=== PATIENT | female | born 1980 | race Caucasian/White ===

== ENCOUNTER 2019-12-04 13:07 | Emergency (ER) | payer BC, SELFPAY ==
[2019-12-04 13:24] VITALS: BP 140/73; PULSE 83; RESP 17; TEMP 36.6; O2SAT 100
--- NOTE | 2019-12-04 13:25 | ED.GENADULT ---
HPI - General Adult General Chief complaint: Unspecified Stated complaint: something stuck in throat History of Present Illness HPI narrative: Timi presented to clinic after choking on a cranberry. She has a history of esophageal stricture for many years. She was supposed to have a dilation but did not end up having it done years ago. She does occasionally get things stuck in her throat. However it is not been this bad or for this long before. She feels a mass in the right side of her throat, is coughing, and gagging but cannot vomit it. She is able to speak and breath without difficulty. Related Data Home Medications Medication Instructions Recorded Confirmed epinephrine 0.3 ml SUBCUT PRN PRN 12/04/19 12/04/19 rizatriptan 5 mg PO DAILY PRN 12/04/19 12/04/19 Allergies Allergy/AdvReac Type Severity Reaction Status Date / Time No Known Allergies Allergy Mild Verified 01/07/18 09:36 Review of Systems Review of Systems: All systems reviewed & are unremarkable except as noted in HPI and below PMFSH Family History Family History Grandparent Family history of elevated blood lipids Cerebrovascular accident, Onset Age: 62 Diabetes mellitus Father Hypertension Social History Social History Smoking status: Former smoker Second hand tobacco smoke exposure: No Alcohol intake: current Exam Const: Other: Adult woman holding trash can, and gagging and dry heaving into it is well spitting up saliva. she is able to speak without difficulty. HENMT: Head: normal to inspection Other: Normocephalic, atraumatic, EOMI, no cervical lymphadenopathy, moist mucous membranes, no visible foreign body in the oropharynx Eyes: Pupils: Equal, round and reactive pupils present Neck: Neck: normal visual inspection and no lymphadenopathy Resp: Effort & Inspection: normal respiratory effort and not labored Auscultation: clear to auscultation bilaterally, breath sounds present and lung sounds not diminished Other: no stridor or wheezes Cardio: Rate: regular rate Rhythm: regular rhythm GI: GI Palp: Yes Soft to palpation and No Tenderness to palpation present (GI) Skin: General skin exam: normal color Neuro: General: patient oriented x3, moves all extremities and CN's II-XI intact bilaterally Extrem: General: normal to inspection Psych: Mental Status: mental status grossly normal Course Vital Signs Vital signs: Vital Signs Temperature 36.6 C 12/04/19 13:24 Pulse Rate 83 12/04/19 13:24 Respiratory Rate 17 12/04/19 13:24 Blood Pressure 140/73 12/04/19 13:24 Pulse Oximetry 100 12/04/19 13:24 Temperature 36.6 C 12/04/19 13:24 Pulse Rate 83 12/04/19 13:24 Respiratory Rate 17 12/04/19 13:24 Blood Pressure 140/73 12/04/19 13:24 Pulse Oximetry 100 12/04/19 13:24 Medical Decision Making Vital Signs Vital Signs: Vital Signs Temperature 36.6 C 12/04/19 13:24 Pulse Rate 83 12/04/19 13:24 Respiratory Rate 17 12/04/19 13:24 Blood Pressure 140/73 12/04/19 13:24 Pulse Oximetry 100 12/04/19 13:24 Temperature 36.6 C 12/04/19 13:24 Pulse Rate 83 12/04/19 13:24 Respiratory Rate 17 12/04/19 13:24 Blood Pressure 140/73 12/04/19 13:24 Pulse Oximetry 100 12/04/19 13:24 Discharge Plan Discharge Clinical Impression: Esophageal obstruction due to food impaction Patient Disposition: Acute Care Hospital Condition: Stable Additional Instructions: Please proceed to the outpatient surgery center at [facility] nephew will not be transported by EMS. please return to the emergency department for any new, worsening, or concerning symptoms. Prescriptions: No Action epinephrine 0.3 mg/0.3 mL auto-injector 0.3 ml subcut PRN PRN (Reason: Anaphylaxis) RF: 0 rizatriptan 5 mg tablet,disintegrating 5 mg PO DAILY PRN
[2019-12-04 13:45] VITALS: PULSE 76; O2SAT 99
== END 2019-12-04 13:46 | disposition short-term general hospital (02) ==
PROVIDERS: Emergency Provider Family Medicine
DX: K22.2 Esophageal obstruction (principal)
CPT/HCPCS: 99282; 99283

== ENCOUNTER 2019-12-04 14:20 | Day surgery (SDC) | payer BC, SELFPAY ==
[2019-12-04 14:53] VITALS: BMI 20.8
[2019-12-04 14:56] VITALS: BP 121/81; PULSE 74; RESP 24; TEMP 36.9; O2SAT 100
[2019-12-04] MEDS: LACTATED RINGERS 1,000 ML 150 ML IV CONT (15:12)
--- NOTE | 2019-12-04 15:21 | WPDANESEPPF ---
Anes - Initial Pre Proc Eval Procedure: Operation Date: 12/04/19 15:15 Proposed Procedures p Esophagogastroduodenoscopy with Foreign Body Removal - Jesus Durham MD Date/Time: 12/04/19 15:21 Surgeon: Jesus Durham MD Pre Op Diagnosis: foreign body in throat Patient Data Age: 39 Gender: F Height: 5 ft 1 in Weight: 50 kg Last Vital Signs Temp 36.9 C 12/04/19 14:56 Pulse 74 12/04/19 14:56 Resp 24 H 12/04/19 14:56 BP 121/81 12/04/19 14:56 Pulse Ox 100 12/04/19 14:56 Allergies Allergy/AdvReac Type Severity Reaction Status Date / Time No Known Allergies Allergy Verified 12/04/19 14:52 Home Medications Medication Instructions Recorded Confirmed Type calcium carbonate [Calcium 500] 500 mg PO EVERY OTHER DAY 12/04/19 12/04/19 History rflicksqemwv-rycq-cbyzl acid 1 tablet PO DAILY 12/04/19 12/04/19 History [Centrum Women] Patient hx anesthesia problems: none Family hx anesthesia problems: none [facility] Past Medical History Medical History (Updated 12/04/19 @ 15:22 by Govind Peters MD) Esophageal foreign body Surgical History Surgical History (Updated 12/04/19 @ 15:22 by Govind Peters MD) H/O breast augmentation Anes - Eval Final PreProcedure Day of Procedure 12/04/19 15:21 Patient weight: normal Heart: regular rate and rhythm Lungs: clear to auscultation Airway: Mallampati scale class 1 Neurological: alert and oriented Last oral intake: 4 hours Emergent: yes Anesthetic plan: proceed Anesthesia type and monitoring: general (possible ETT) GIVS and standard monitoring Informed Consent: The patient's anesthetic plan and its attendant risks and benefits were discussed with the patient/family/POA. Questions were solicited and answers provided to the satisfaction of the patient/family/POA.
--- NOTE | 2019-12-04 15:43 | P.CONGI_ITS ---
Assessment and Plan Assessment and plan (1) Dysphagia: Code(s): R13.10 - Dysphagia, unspecified Status: Acute Assessment and Plan: will require biopsies, more recommendations after egd (2) Esophageal foreign body: Code(s): T18.108A - Unspecified foreign body in esophagus causing other injury, initial encounter Status: Acute Assessment and Plan: will proceed with urgent EGD GI Consult Note Consult date/time: 12/04/19 15:43 HPI: Timi Wills is a 39 year old female here after she went to [facility] with unable to swallow, she had for lunch cranberries. Never had EGD but previously also difficulty swallowing solids, she is not taking any meds Review of Systems Constitutional: Constitutional: Denies headache(s) and Denies weakness Eyes: Eyes: Denies blurry vision ENT: Reports Normal hearing present, Denies headache(s) and Denies neck pain Cardiovascular: Cardiovascular: Denies chest pain and Denies dyspnea Respiratory: Respiratory: Denies dyspnea Gastrointestinal: Gastrointestinal: Reports no additional gastrointestinal complaints Genitourinary: Genitourinary: Denies dysuria Musculoskeletal: Musculoskeletal: Denies neck pain Integumentary/Breasts: Skin/Breast: Denies dry skin Neurologic: Reports Normal hearing present, Denies headache(s) and Denies weakness Psychiatric: Psychiatric: Denies anxiety Endocrine: Endocrine: Denies change in body appearance Hematologic/Lymphatic: Hematologic/Lymphatic: Denies easy bleeding Allergic/Immunologic: Allergic/Immunologic: Denies urticaria PMFSH Past Medical History Medical History (Updated 12/04/19 @ 15:44 by Jesus Durham MD) Dysphagia Esophageal foreign body Surgical History Surgical History (Updated 12/04/19 @ 15:22 by Govind Peters MD) H/O breast augmentation Meds Home Medications and Allergies Home Medications Medication Instructions Recorded Confirmed Type calcium carbonate [Calcium 500] 500 mg PO EVERY OTHER DAY 12/04/19 12/04/19 History xfknxhtbtjnv-jkxh-ounef acid 1 tablet PO DAILY 12/04/19 12/04/19 History [Centrum Women] Allergies Allergy/AdvReac Type Severity Reaction Status Date / Time No Known Allergies Allergy Verified 12/04/19 14:52 Vital Signs Vital Signs - 24 hr 12/04/19 14:56 Temperature 98.4 F Pulse Rate 74 Respiratory Rate 24 H Blood Pressure 121/81 Pulse Oximetry 100 Exam Const: General: comfortable and no acute distress HENMT: General nose exam: Normal nares present Eyes: General: appearance normal, both eyes and all related structures Neck: Neck: no JVD Resp: Auscultation: clear to auscultation bilaterally Cardio: Rate: regular rate Rhythm: regular rhythm GI: Inspection: non-distended GI Palp: Yes Soft to palpation Skin: General skin exam: normal color Neuro: General: gait normal Speech: normal speech Extrem: General: normal to inspection Psych: Mental Status: mental status grossly normal
[2019-12-04 15:58] VITALS: BP 84/52; PULSE 62; RESP 18; O2SAT 100
[2019-12-04 16:08] VITALS: BP 76/48; PULSE 61; RESP 18; O2SAT 100
[2019-12-04 16:18] VITALS: BP 95/44; PULSE 58; RESP 20; O2SAT 100
== END 2019-12-04 16:50 | disposition home or self-care (01) ==
PROVIDERS: PCP Internal Medicine; Visit Provider Internal Medicine Gastroenterology
PROC: 0DJ08ZZ Inspection of Upper Intestinal Tract, Via Natural or Artificial Opening Endoscopic (ICD-10-PCS; CPT 43235; principal; 2019-12-04 15:15)
DX: K22.2 Esophageal obstruction (principal)
CPT/HCPCS: 43239; 88305; J2704; J7120

== ENCOUNTER → 2021-03-28 13:17 | Outpatient (CLI) | payer BC, OTHER, SELFPAY ==
--- NOTE | ~2021-03-28 | MM_ITS ---
EXAMINATION: MM scrn cecilia implant BI w rogers HISTORY: Screening mammogram TECHNIQUE: Craniocaudal and mediolateral oblique 3-D tomosynthesis images with implant displacement a nd synthetic 2-D images were generated. Craniocaudal and mediolateral oblique views of the breasts wi thout implant displacement were obtained using full field digital mammography. CAD analysis was submi tted and interpreted. COMPARISON: 04/26/2019 BREAST PARENCHYMAL COMPOSITION: There are scattered areas of fibroglandular density. FINDINGS: There is no evidence of suspicious mass, calcification, or architectural distortion to sugg est malignancy in either breast. There has been no suspicious interval change. IMPRESSION: 1. No mammographic evidence of malignancy. 2. Recommend routine screening mammography in one year. BI-RADS Category 1: Negative Reviewed, dictated and finalized at location A.
== END ==
PROVIDERS: Visit Provider Obstetrics & Gynecology
DX: Z12.31 Encounter for screening mammogram for malignant neoplasm of breast (principal)
CPT/HCPCS: 77063; 77067

== ENCOUNTER → 2022-10-06 15:16 | Outpatient (CLI) | payer BC, SELFPAY ==
--- NOTE | ~2022-10-06 | MM_ITS ---
EXAMINATION: MM scrn cecilia implant BI w rogers HISTORY: Screening mammogram TECHNIQUE: Craniocaudal and mediolateral oblique 3-D tomosynthesis images with implant displacement a nd synthetic 2-D images were generated. Craniocaudal and mediolateral oblique views of the breasts wi thout implant displacement were obtained using full field digital mammography. CAD analysis was submi tted and interpreted. COMPARISON: 03/28/2021, 04/26/2019 BREAST PARENCHYMAL COMPOSITION: The breasts are heterogeneously dense, which may obscure small masses . FINDINGS: There is no evidence of suspicious mass, calcification, or architectural distortion to sugg est malignancy in either breast. There has been no suspicious interval change. IMPRESSION: 1. No mammographic evidence of malignancy. 2. Recommend routine screening mammography in one year. BI-RADS Category 1: Negative Reviewed, dictated and finalized at location A. MOPLASTIC TECHNICIAN
== END ==
PROVIDERS: PCP Internal Medicine; Visit Provider Obstetrics & Gynecology
DX: Z12.31 Encounter for screening mammogram for malignant neoplasm of breast (principal); Z98.82 Breast implant status
CPT/HCPCS: 77063; 77067

== ENCOUNTER 2023-09-22 10:41 | Outpatient (CLI) | payer BC, OTHER, SELFPAY ==
--- NOTE | ~2023-09-22 | MR_ITS ---
EXAMINATION: MR breast BI wo con INDICATION: Breast implant rupture TECHNIQUE: Axial T2 FSE ASSET, axial 3D T1, Sagittal T2 FSE, Sagittal T2 FSE Fat Sat COMPARISON: Screening mammogram dated 10/06/2022 FINDINGS: RIGHT BREAST: There is near complete collapse of the saline right breast implant. No evidence of sign al abnormalities in the axillary or internal mammary node distributions. LEFT BREAST: The saline left breast implant appears to be intact and without abnormality No evidence of signal abnormalities in the axillary or internal mammary node distributions.] IMPRESSION: 1. Near complete collapse of the saline right breast implant. BI-RADS Category 1: Negative Reviewed, dictated and finalized at location A. UNTANT SUPERVISOR
== END 2023-09-22 10:42 | disposition home or self-care (01) ==
PROVIDERS: PCP Internal Medicine; Visit Provider Obstetrics & Gynecology
DX: T85.49XA Other mechanical complication of breast prosthesis and implant, initial encounter (principal)
CPT/HCPCS: 77047

== ENCOUNTER 2024-09-06 12:23 | Outpatient (CLI) | payer BC, SELFPAY ==
--- NOTE | ~2024-09-06 | MM_ITS ---
EXAMINATION: MM screening cecilia BI w rogers HISTORY: Screening. Status post implant removal. TECHNIQUE: Craniocaudal and mediolateral oblique 3-D tomosynthesis images were obtained and synthetic 2-D images were generated. CAD analysis was submitted and interpreted. COMPARISON: 04/26/2019 BREAST PARENCHYMAL COMPOSITION: Dense: The breasts are extremely dense, which lowers the sensitivity of mammography. FINDINGS: There is no evidence of suspicious mass, calcification, or architectural distortion to sugg est malignancy in either breast. There has been no suspicious interval change. IMPRESSION: 1. No mammographic evidence of malignancy. 2. Recommend routine screening mammography in one year. BI-RADS Category 1: Negative Reviewed, dictated and finalized at location B. LY AND CONSUMER SCIENCE PROFESSOR
== END 2024-09-06 12:24 | disposition home or self-care (01) ==
LOC: MICIMG 12:23
PROVIDERS: PCP Internal Medicine; Visit Provider Obstetrics & Gynecology
DX: Z12.31 Encounter for screening mammogram for malignant neoplasm of breast (principal)
CPT/HCPCS: 77063; 77067

== ENCOUNTER 2025-08-01 01:44 | Day surgery (SDC) | payer BC, OTHER, SELFPAY ==
[2025-07-19 15:21] VITALS: BMI 20.1
[2025-08-01 12:15] VITALS: BP 106/64; PULSE 56; RESP 16; TEMP 36.5; O2SAT 100; BMI 19.9
[2025-08-01 12:33] LABS: BEDSIDEPREGUCG Negative (Negative)
--- NOTE | 2025-08-01 12:36 | WPDANESEPPF ---
Anes - Initial Pre Proc Eval Procedure: Operation Date: 08/01/25 13:30 Proposed Procedures p Screening Colonoscopy - Jesus Durham MD Date/Time: 08/01/25 12:36 Surgeon: Jesus Durham MD Pre Op Diagnosis: Screening Patient Data Age: 45 Gender: F Height: 1.57 m Weight: 49.5 kg Last Vital Signs Temp 36.5 C 08/01/25 12:15 Pulse 56 L 08/01/25 12:15 Resp 16 08/01/25 12:15 BP 106/64 08/01/25 12:15 Pulse Ox 100 08/01/25 12:15 O2 Del Method Room Air 08/01/25 12:15 Allergies Allergy/AdvReac Type Severity Reaction Status Date / Time No Known Allergies Allergy Verified 08/01/25 12:20 Home Medications ?Medication ?Instructions ?Recorded ?Confirmed ?Type epinephrine 0.3 mg/0.3 mL 0.3 ml subcut PRN PRN Anaphylaxis 12/04/19 07/19/25 History injection, auto-injector multivitamin-ferrous 1 tablet PO DAILY 12/04/19 08/01/25 History fumarate-folic acid 18 mg-400 mcg tablet (Centrum Women) omeprazole 20 mg capsule,delayed 20 mg PO BID #60 caps 12/11/19 08/01/25 Rx release levothyroxine 25 mcg tablet 25 mcg PO DAILY 07/19/25 08/01/25 History Laboratory Tests 08/01/25 12:15 POC Urine HCG, Qual Negative (Negative) Patient hx anesthesia problems: none Family hx anesthesia problems: none Results Review: All pre-operative results and documents have been reviewed as part of the pre-operative evaluation. [facility] Past Medical History Medical History (Updated 12/06/19 @ 14:00 by Miya Chao) Dysphagia Esophageal foreign body Surgical History Surgical History (System 12/06/19 @ 14:00 by Miya Chao) H/O breast augmentation Family History Family History (System 12/06/19 @ 14:00 by Miya Chao) Grandparent Family history of elevated blood lipids Cerebrovascular accident, Onset Age: 62 Diabetes mellitus Father Hypertension Social History Social History (System 12/06/19 @ 14:00 by Miya Chao) Smoking status: Former smoker Second hand tobacco smoke exposure: No Alcohol intake: current Drinks per week: 5 Substance use: never Substance use type: does not use Living arrangements: with family Spiritual care concerns: No Anes - Eval Final PreProcedure Day of Procedure 08/01/25 12:36 Patient weight: normal Heart: regular rate and rhythm Lungs: clear to auscultation Airway: Mallampati scale class II Neurological: alert and oriented Last oral intake: >/= 8 hours ASA classification: II Emergent: no Anesthetic plan: proceed Anesthesia type and monitoring: general ETT and standard monitoring Results Review: All pre-operative results and documents have been reviewed as part of the pre-operative evaluation. Informed Consent: The patient's anesthetic plan and its attendant risks and benefits were discussed with the patient/family/POA. Questions were solicited and answers provided to the satisfaction of the patient/family/POA.
[2025-08-01] MEDS: LACTATED RINGERS 1,000 ML 150 ML IV CONT (12:39)
--- NOTE | 2025-08-01 13:44 | P.HP_ITS ---
History of Present Illness History of Present Illness Consent: Risks, benefits, and alternatives have been discussed and questions answered. Patient agrees to proceed with procedure. Chief complaint: Screening Narrative: Timi Wills is a 45 year old female here for first screening colonoscopy Review of Systems Review of Systems: All systems reviewed & are unremarkable except as noted in HPI and below PMFSH Past Medical History Medical History (Updated 08/01/25 @ 13:46 by Jesus Durham MD) Colon cancer screening Dysphagia Esophageal foreign body Surgical History Surgical History (System 12/06/19 @ 14:00 by Miya Chao) H/O breast augmentation Family History Family History (System 12/06/19 @ 14:00 by Miya Chao) Grandparent Family history of elevated blood lipids Cerebrovascular accident, Onset Age: 62 Diabetes mellitus Father Hypertension Social History Social History (System 12/06/19 @ 14:00 by Miya Chao) Smoking status: Former smoker Second hand tobacco smoke exposure: No Alcohol intake: current Drinks per week: 5 Substance use: never Substance use type: does not use Living arrangements: with family Spiritual care concerns: No Meds Home Medications and Allergies Home Medications ?Medication ?Instructions ?Recorded ?Confirmed ?Type epinephrine 0.3 mg/0.3 mL 0.3 ml subcut PRN PRN Anaphy laxis 12/04/19 07/19/25 History injection, auto-injector multivitamin-ferrous 1 tablet PO DAILY 12/04/19 1 10/01/24 History fumarate-folic acid 18 mg-400 mcg tablet (Centrum Women) omeprazole 20 mg capsule,delayed 20 mg PO BID #60 caps 12/11/19 08/01/25 Rx release levothyroxine 25 mcg tablet 25 mcg PO DAILY 07/19/25 1 10/01/24 History Allergies Allergy/AdvReac Type Severity Reaction Status Date / Time No Known Allergies Allergy Verified 08/01/25 12:20 Vital Signs Vital Signs - 24 hr 08/01/25 12:15 Temperature 97.7 F Pulse Rate 56 L Respiratory Rate 16 Blood Pressure 106/64 Pulse Oximetry 100 Oxygen Delivery Room Air Exam Const: General: comfortable and no acute distress Neck: Neck: no JVD Resp: Auscultation: clear to auscultation bilaterally Cardio: Rate: regular rate Rhythm: regular rhythm GI: Inspection: non-distended GI Palp: Yes Soft to palpation Skin: General skin exam: normal color Extrem: General: normal to inspection Psych: Mental Status: mental status grossly normal Assessment and Plan Assessment and plan (1) Colon cancer screening: Code(s): Z12.11 - Encounter for screening for malignant neoplasm of colon Status: Acute Assessment and Plan: colonoscopy
--- NOTE | 2025-08-01 14:00 | S_PTH ---
PATIENT: Timi Wills LOC: [facility]#:[id number] AGE/SX: 45/F ROOM: RE08/01/[address]: Jesus Durham MD : 1980 BED: DIS: 08/01/2025 SPEC #: [id number] RECD: 08/02/25 08:52 STATUS: HELIO REJraocho #: [id number] LETICIA: 08/01/25 14:[address]: Jesus Durham DEPT: [facility] Surgical RECD BY: Ariana Estevez ENTERED: 08/02/25 08:52 SP TYPE: Surgical OTHR DR: Kayla Maravilla, SQL DBA Tissues: A - Colon Polypectomy Procedures: Hematoxylin and Eosin Stain Gross and Microscopic Level 4
[2025-08-01 14:01] VITALS: BP 97/56; PULSE 64; RESP 19; O2SAT 100
[2025-08-01 14:11] VITALS: BP 97/65; PULSE 57; RESP 21; O2SAT 100
[2025-08-01 14:21] VITALS: BP 109/63; PULSE 55; RESP 22; O2SAT 100
== END 2025-08-01 14:33 | disposition home or self-care (01) ==
PROVIDERS: Anesthesiology; PCP Nurse Practitioner Family; Referring Provider Obstetrics & Gynecology; Visit Provider Internal Medicine Gastroenterology
PROC: 0DJD8ZZ Inspection of Lower Intestinal Tract, Via Natural or Artificial Opening Endoscopic (ICD-10-PCS; CPT 45378; principal; 2025-08-01 13:30)
DX: Z12.11 Encounter for screening for malignant neoplasm of colon (principal); D12.5 Benign neoplasm of sigmoid colon; K64.8 Other hemorrhoids; Z98.890 Other specified postprocedural states; Z87.891 Personal history of nicotine dependence
CPT/HCPCS: 45385; 88305; J2003; J2704; J7120